=== PATIENT | female | born 1955 | race Caucasian/White ===

== ENCOUNTER → 2016-12-03 | Outpatient (CLI) | payer OTHER ==
[~2016-12-03] MED LIST: CYMB30CA PO; CYMB60CA PO
--- NOTE | 2016-12-07 14:05 | RSPPFT ---
DATE OF PROCEDURE: 12/03/16 COMMENTS: Spirometry shows FVC of 2.8 at 108% of predicted, FEV1 of 2.3 at 121%, FEV1/FVC ratio is normal. Flow is normal at FEF 25, FEF 50, FEF 75 and FEF 25-75. There is no response after bronchodilator treatment. Lung volumes show residual volume is increased. TLC is increased. Diffusion capacity is normal. Flow volume loop indicates a normal pattern. IMPRESSION: 1. Normal spirometry. 2. No response after bronchodilator treatment. 3. Lung volumes show hyperinflation. 4. Diffusion capacity is normal.
== END ==
LOC: HRSP 07:44
PROVIDERS: ATTEND Specialist
DX: J44.9 Chronic obstructive pulmonary disease, unspecified (principal)
CPT/HCPCS: 94060; 94726; 94729

== ENCOUNTER → 2017-02-10 | Outpatient (CLI) | payer OTHER ==
[~2017-02-10] VITALS: Ht 152.4 cm; Wt 65.8 kg
[~2017-02-10] MED LIST changes: +*RESP: ALBUTEROL 2.5 MG/3 ML NEB (PRN) PERIprocedural Use ONLY NEB ONE; +CALC600T64 PO; +CHLORHEXIDINE GLUCONATE 2 % 1 PACK (2 CLOTHS) TOPICAL PRN; -CYMB30CA PO; +DO NOT ADM ANY ANTICOAGULANT DRUGS PRN; +FISH100020 PO; +FLUMAZENIL 0.5 MG/5 ML VIAL IV PRN; +HYOSCYAMINE 0.125 MG TAB SL ONE; +INSULIN HUMAN REGULAR 1,000 UNITS/10 ML VIAL SQ PRN; +LACTATED RINGER'S 1000 ML IV PRN; +METOPROLOL TARTRATE 25 MG TAB PO PRN; +NALOXONE HCL 0.4 MG/ML AMP IV PRN; +ONDANSETRON HCL 4 MG/2 ML VIAL IV PUSH ONE; +POVIDONE IODINE 5% (ANTISEPSIS KIT) 4 APPLICATIONS EACH NARE PRN; +PROPOFOL 200 MG/20 ML AMP IV PUSH ONE; +RESP: ALBUTEROL 2.5 MG/3 ML NEB (SCH) INH ONE; +SODIUM CHLORID 0.9% 500 ML IV PRN
[2017-02-10 09:59] VITALS: BP 109/68; PULSE 61; RESP 16; TEMP 97.5; O2SAT 95
[2017-02-10 16:00] VITALS: BP 103/56; PULSE 76; RESP 20; TEMP 98.7; O2SAT 95
--- NOTE | 2017-02-11 08:08 | EKG ---
Date Performed: 02/10/2017 Time Performed: 09:42:38 PTAGE: 61 years EKG: Sinus rhythm BORDERLINE LEFT AXIS DEVIATION INCOMPLETE RIGHT BUNDLE BRANCH BLOCK BORDERLINE ECG NO PREVIOUS TRACING DOCTOR: Alex Holm Interpretating Date/Time 02/11/2017 08:04:45
--- NOTE | 2017-02-12 15:30 | MR ---
cc: BROOKE MENSAH M.D. DATE: 02/10/2017. TYPE OF PROCEDURE PERFORMED: Colonoscopy with biopsy. INDICATIONS FOR THE PROCEDURE: Screening colonoscopy apparent average risk. The patient has a recent CT scan which revealed the possibility of left-sided colitis, rule out colitis as well. Photographs were taken. Biopsies were taken. Premedications administered by anesthesiology. Monitoring, pulse oximetry and EKG and blood pressure monitor. DESCRIPTION OF THE PROCEDURE IN DETAIL: After informed consent was obtained and the procedure risks and benefits were explained including the risks of bleeding, sepsis, perforation, and risk of anesthesia, the patient was placed in the left lateral position. The video colonoscope was inserted to the rectum. The left colon was quite tortuous. Scattered diverticulosis was noted. One diminutive polyp was found and biopsied off and removed. The scope was maneuvered with some moderate difficulty along the left colon into the transverse colon and the right colon and cecum were entered. Mucosa throughout appeared to be grossly normal without any inflammatory changes. There was one diverticulum noted in the ascending colon. The scope was then gradually withdrawn. There was some residual liquefied secretions and/or stool noted. The scope did have a tendency to get clogged a few times and had to be unclogged during the procedure. Also the patient did have a tendency to retain some air as well. The scope was pulled back down to the distal sigmoid. Another diminutive polyp was found and biopsied off and removed. Advancement of the scope back to the transverse colon for decompression of air was difficult because of tortuosity but eventually the transverse colon was reentered and suctioned as best possible. In the rectum, the scope was retroflexed and was removed. I did not appreciate any significant hemorrhoids or masses. The patient tolerated this well. The patient did have some nausea postprocedure and was given Zofran. IMPRESSION: This examination revealed small polyps that were biopsied off as outlined above. Diverticulosis was noted and colonic tortuosity noted in the left colon as well. There was some residual liquefied stool suctioned as best possible. The patient did have a tendency to retain air as well and she was decompressed with suctioning as best possible. PLAN: The plan will be to follow the patient clinically and postop and then hopefully discharge and follow up as an outpatient. Will follow up biopsies taken today. Recommend repeat colonoscopy in 5 years if adenomatous polyps were encountered. Recommend high fiber diet and fiber supplements. This examination failed to reveal any active colitis or inflammatory changes. MD JARETT Reyes/REJI /1:32 PM /3:20 PM
== END ==
LOC: HSDC 09:01
PROVIDERS: ATTEND Internal Medicine Gastroenterology
DX: Z12.11 Encounter for screening for malignant neoplasm of colon (principal); K57.30 Diverticulosis of large intestine without perforation or abscess without bleeding; D12.4 Benign neoplasm of descending colon; D12.5 Benign neoplasm of sigmoid colon; I45.10 Unspecified right bundle-branch block
CPT/HCPCS: 00810; 45380; 88305; 93005; 94664; J2405; J7120; J7613

== ENCOUNTER → 2017-05-03 | Outpatient (CLI) | payer OTHER ==
[~2017-05-03] MED LIST changes: -*RESP: ALBUTEROL 2.5 MG/3 ML NEB (PRN) PERIprocedural Use ONLY NEB ONE; +ALBUAER3 INH; -CHLORHEXIDINE GLUCONATE 2 % 1 PACK (2 CLOTHS) TOPICAL PRN; -DO NOT ADM ANY ANTICOAGULANT DRUGS PRN; -FLUMAZENIL 0.5 MG/5 ML VIAL IV PRN; -HYOSCYAMINE 0.125 MG TAB SL ONE; +IBUP1TAB5 PO; -INSULIN HUMAN REGULAR 1,000 UNITS/10 ML VIAL SQ PRN; -LACTATED RINGER'S 1000 ML IV PRN; -METOPROLOL TARTRATE 25 MG TAB PO PRN; -NALOXONE HCL 0.4 MG/ML AMP IV PRN; -ONDANSETRON HCL 4 MG/2 ML VIAL IV PUSH ONE; -POVIDONE IODINE 5% (ANTISEPSIS KIT) 4 APPLICATIONS EACH NARE PRN; -PROPOFOL 200 MG/20 ML AMP IV PUSH ONE; -RESP: ALBUTEROL 2.5 MG/3 ML NEB (SCH) INH ONE; -SODIUM CHLORID 0.9% 500 ML IV PRN
== END ==
LOC: CPRE 12:18
PROVIDERS: ATTEND Neurological Surgery
DX: Z00.00 Encounter for general adult medical examination without abnormal findings (principal)

== ENCOUNTER 2017-05-06 05:56 | Observation (INO) | payer OTHER ==
--- NOTE | 2017-05-05 14:48 | MH ---
cc: SHILA ANGULO MD, ROHIT K. M.D. DATE OF ADMISSION: 05/06/2017 ADMITTING DIAGNOSIS Cervical stenosis. HISTORY OF PRESENT ILLNESS This is a 62-year-old female who presented to our office for evaluation of neck pain which she has had for 2 years, progressively getting worse. She has pain that radiates into the right upper extremity in the lateral aspect to the elbow and feels like she has pins and needles and stabbing pain in the elbow. She states the pain progresses down the arm and stops mostly at the wrist, but sometimes goes into the fingers and hand. She has noticed weakness in her right hand. She is left-handed. When she ambulates she feels off balance. She denies any urinary frequency or incontinence. She has had chronic low back pain and feels like it could go out on her. She has had physical therapy on her low back and pain management for her low back but has not had any physical therapy or pain management on her neck. PAST MEDICAL HISTORY 1. Rheumatoid arthritis. 2. Depression. 3. Hysterectomy in 2014. MEDICATIONS Current medications: 1. Cymbalta 60 mg daily. 2. Fish oil daily; this was placed on hold prior to surgical intervention. 3. Calcium daily. ALLERGIES SHE IS ALLERGIC TO CODEINE. FAMILY HISTORY Her father's health is unknown. Her mother is at 73-year-old, had COPD and heart failure. Her sister is alive at [id number], has COPD. Her other sister is alive at [id number], has diabetes. SOCIAL HISTORY She is . She has two children. She lives alone. She does not smoke and has not smoked in the past. She does not drink alcohol. REVIEW OF SYSTEMS CONSTITUTIONAL: She denies any fever or chills. EARS, NOSE, AND THROAT: No pharyngitis, exudates or bloody drainage from her nose. CARDIOVASCULAR: She denies any chest pain or palpitations. RESPIRATORY: No cough or shortness of breath. GENITOURINARY: No dysuria or hematuria. MUSCULOSKELETAL: Positive for neck pain. SKIN: No rashes or pruritus. NEUROLOGIC: No difficulty with speech or memory GASTROINTESTINAL: No nausea, vomiting, abdominal pain. PSYCHIATRIC: Positive for anxiety and depression symptoms. ENDOCRINE: No polyuria or polydipsia. HEMATOLOGIC: No bruising or bleeding tendencies. PHYSICAL EXAMINATION HEAD: Normocephalic, atraumatic. NECK: Supple. No carotid bruits heard on auscultation. LUNGS: Clear to auscultation bilaterally. HEART: Regular rate and rhythm. Normal S1, S2. ABDOMEN: Soft, nontender. Positive bowel sounds. SKIN: No cyanosis or erythema. MUSCULOSKELETAL: She has left triceps 4/5 strength, bilateral hand intrinsic 4/5 strength. Her other strength is 5/5 in the upper and lower extremities. She ambulates without any assistive device. NEUROLOGIC: She is awake, alert and oriented. Cranial nerves II-XII appear grossly intact. Her speech is fluent. Comprehension is good. Reflexes are slightly brisk in the lower extremities, 2+ in the upper extremities. There is no Ted or clonus response. DATA REVIEW We reviewed an MRI of the cervical spine from December 31, 2016 which reveals severe C5-C6 spinal stenosis with spinal cord compression and intrinsic spinal cord changes from a disc osteophyte complex along with degenerative disc disease. There is also C4-C5 degenerative disc disease and C6-C7 disc osteophyte complex with left-sided foraminal more than right, but no significant spinal stenosis. IMPRESSION A 61-year-old female with a chronic history of neck and low back pain with associated cervical myelopathy and weakness in the hand intrinsics with unsteadiness in her gait. She has severe C5-C6 spinal cord compression from a disc osteophyte complex and degenerative changes. She also has degenerative disc disease at C4-C5 and C6-C7. PLAN We have discussed the treatment options with the patient and we recommend an anterior C5-C6 microdiscectomy with fusion given the cervical myelopathy and spinal cord compression. She is at increased risk of worsening weakness and paralysis especially following any whiplash type injury. We have also discussed other options which include physical therapy to help prevent further deconditioning with spinal stabilization exercises. The procedure as well as the risk, benefit, alternative and recovery time were explained in great detail with the patient. We have discussed the risks involved with surgery include but are not limited to bleeding, infection, muscle weakness, voice hoarseness, difficulty swallowing, heart attack, stroke, blood clots, non-fusion, scar tissue formation, among others. The patient understands the procedure as well as the risks involved and she is requesting that we proceed and she was therefore scheduled accordingly. Dictated by: Angus Ba PA-C MD JAIRO Metcalf /1:41 PM /2:30 PM
[~2017-05-06] VITALS: Ht 152.4 cm; Wt 66.5 kg
[2017-05-06] VITALS (7 sets, daily range): BP systolic 113–133; BP diastolic 64–78; PULSE 69–75; RESP 16–24; TEMP 96.4–97.7; O2SAT 92–98
[~2017-05-06 05:56] MED LIST changes: -CYMB60CA PO
[2017-05-06] MEDS ORDERED: VANCOMYCIN 1,000 MG/NS 250 ML IV SCH ×2 (06:30)
[2017-05-06] MEDS ORDERED: METOPROLOL TARTRATE 25 MG TAB PO PRN (06:30)
[2017-05-06] MEDS ORDERED: INSULIN HUMAN REGULAR 1,000 UNITS/10 ML VIAL SQ PRN (06:30)
[2017-05-06] MEDS ORDERED: POVIDONE IODINE 5% (ANTISEPSIS KIT) 4 APPLICATIONS EACH NARE PRN (06:30)
[2017-05-06] MEDS ORDERED: LACTATED RINGER'S 1000 ML IV PRN (06:30)
[2017-05-06] MEDS ORDERED: CHLORHEXIDINE GLUCONATE 2 % 1 PACK (2 CLOTHS) TOPICAL PRN (06:30)
[2017-05-06] MEDS ORDERED: SODIUM CHLORID 0.9% 500 ML IV PRN (06:30)
[2017-05-06] MEDS ORDERED: SODIUM CHLOR 0.9% 1000 ML INJ 1,000 ML IV SCH (06:45)
[2017-05-06] MEDS ORDERED: VANCOMYCIN HCL 1000 MG VIAL ONE (06:53)
[2017-05-06] MEDS ORDERED: GELFOAM SIZE 100 ONE (06:54)
[2017-05-06] MEDS ORDERED: THROMBIN (TOPICAL) 5,000 UNIT VIAL ONE (06:54)
[2017-05-06] MEDS ORDERED: BUPIVACAINE/EPINEPHRINE 0.5% PF 10 ML VIAL ONE (06:54)
[2017-05-06] MEDS ORDERED: DEXAMETHASONE SOD PHOS 4 MG/ML VIAL ONE (09:53)
[2017-05-06] MEDS ORDERED: NS + KCL 20 MEQ INJ 1,000 ML IV SCH (11:26)
[2017-05-06] MEDS ORDERED: DO NOT ADM ANY ANTICOAGULANT DRUGS PRN (11:29)
[2017-05-06] MEDS ORDERED: ACETAMINOPHEN/HYDROcodone 325 MG/10 MG TAB PO PRN (11:30)
[2017-05-06] MEDS ORDERED: ACETAMINOPHEN 325 MG TAB PO PRN (11:30)
[2017-05-06] MEDS ORDERED: ZOLPIDEM TARTRATE 5 MG TAB PO PRN (11:30)
[2017-05-06] MEDS ORDERED: ALUMINUM/MAGNESIUM/SIMETH 30 ML CUP PO PRN (11:30)
[2017-05-06] MEDS ORDERED: RESP: ALBUTEROL 2.5 MG/3 ML NEB (PRN) NEB (11:30)
[2017-05-06] MEDS ORDERED: CYCLOBENZAPRINE HCL 10 MG TAB PO PRN (11:30)
[2017-05-06] MEDS ORDERED: cloNIDine HCL 0.1 MG TAB PO PRN (11:30)
[2017-05-06] MEDS ORDERED: SODIUM CHLORIDE 0.9% FLUSH 10 ML FLUSH IV FLUSH PRN (11:30)
[2017-05-06] MEDS ORDERED: ALBUTEROL SULFATE 90 MCG/ACT HFA 8 GM INHALER INH PRN (11:30)
[2017-05-06] MEDS ORDERED: PROMETHAZINE INJ 25 MG/ML VIAL IM PRN (11:30)
[2017-05-06] MEDS ORDERED: MENTHOL LOZENGE BUCCAL PRN (11:30)
[2017-05-06] MEDS ORDERED: MAGNESIUM HYDROXIDE SUSP 30 ML CUP PO PRN (11:30)
--- NOTE | 2017-05-06 11:34 | PD.OP ---
cc: Chay Hand MD R2 Operative Report Date of Surgery: May 06, 2017 Preoperative Diagnosis: Neck pain with myeloradiculopathy; C5-6 severe stenosis from a large disc osteophyte complex and spinal cord compression Postoperative Diagnosis: Same Procedure: Anterior cervical C5-6 interbody fusion; anterior C5-6 the plate placement; C5- 6 interbody cage placement; microsurgical technique Anesthesia: Gen. endotracheal by Shanice Chung Surgeon: Michael Maciel M.D. Case Manager(s): Johanna Cantu Operation and Findings: Following administration of general endotracheal anesthesia with the neck maintained in neutral position of [place] collar, the patient received a gram of vancomycin and Decadron 10 mg intravenously. Sequential compression devices were placed in supine position on a Tayo table and all pressure points adequately padded. The head secured in a donut and anterior cervical region then shaved and prepped with Chloraprep and sterilely draped with Ioban along with the usual sterile draping. A transverse skin incision on the left side of the neck was then made after infiltrating the skin with 0.5% Marcaine with epinephrine solution extending down through the platysma. At the anterior border of the sternocleidomastoid further dissection was undertaken developing a plane between the carotid sheath laterally and the trachea esophagus medially. The prevertebral fascia was exposed and dissected out. The medial attachments of the longus colli muscles were detached and a self-retaining retractor used for exposure. The C5-6 disc space was localized with a marking the disc space and using lateral fluoroscopy. Large anterior osteophytes were resected with a Leksell and also C4-5 autofusion was evident. Midland distraction screws 14 mm length were placed one in the C5 and one in the C6 body interbody distraction and exposure. There was significant disc degeneration with disc height collapse and anterior osteophytes noted at the C5- 6 level and the osteophytes were resected with a Leksell and annulus incised with a 15 blade and further dissection undertaken using microtechnique with microscope magnification. Diskectomy was undertaken with pituitaries and the endplates were also decorticated with curettes and drill bit. And more posteriorly there was disk osteophyte complex compressing the thecal sac along with a significant uncovertebral joint hypertrophy with foraminal stenosis which was decompressed along with removal of the posterior longitudinal ligaments at both levels. The foramen was decompressed bilaterally using a Kerrison's and palpation with a nerve hook, the exiting nerve roots were felt to be free. The area was then copiously irrigated. I then placed a Peek cage packed with local autograft bone at the C5-6 interspace under fluoroscopy guidance. Midland distraction pins were removed and the holes plugged with Gelfoam for hemostasis. In order to facilitate the fusion and provide stabilization, a Precision spine cervical plate was then placed with two 14 mm variable angle screws in the C5 body and two 14 mm fixed angle screws in the C6 body. The plate screw locking mechanism was then engaged. AP and lateral fluoroscopy confirmed good placement of the construct and the retractor was then removed. Muscular bleeding points were cauterized with bipolar cautery and Gelfoam was then also used for hemostasis which was removed. The platysma was then approximated using 3-0 Vicryl interrupted stitches and 3-0 Vicryl subcuticular stitch also placed in an interrupted fashion, and final skin closure was with Mastisol and Steri-Strips. Sterile dressing was then applied. The patient was then extubated and taken to the recovery room. There are no intraoperative complications and all sponge and needle counts were correct at the end of procedure. Estimated blood loss was about 50 cc. The patient did undergo intraoperative neurologic monitoring which remained stable throughout the surgery. Michael Maciel MD May 06, 2017 11:34
[2017-05-06] MEDS ORDERED: *morphine SULFATE 8 MG/ML PERIprocedure ONLY ONE (11:50)
[2017-05-06] MEDS ORDERED: ONDANSETRON HCL 4 MG/2 ML VIAL IV PUSH ONE (12:00)
[2017-05-06] MEDS ORDERED: PROPOFOL 200 MG/20 ML AMP IV ONE (12:00)
[2017-05-06] MEDS ORDERED: LIDOCAINE HCL 1% PF 5 ML AMPULE OTHER ONE (12:00)
[2017-05-06] MEDS ORDERED: NORMOSOL R INJ 1,000 ML IV ONE (12:00)
[2017-05-06] MEDS ORDERED: ROCURONIUM INJ 50 MG/5 ML SYRINGE IV PUSH ONE (12:00)
[2017-05-06] MEDS ORDERED: DEXAMETHASONE SOD PHOS 4 MG/ML VIAL IV ONE (12:00)
[2017-05-06] MEDS ORDERED: ePHEDrine/NS 25 MG/5 ML SYR IV ONE (12:00)
[2017-05-06] MEDS ORDERED: PHENYLEPH/NS 1000 MCG/10 ML SYR IV ONE (12:00)
--- NOTE | 2017-05-06 14:30 | RADRPT ---
EXAM DATE/TIME: 05/06/2017 08:58 [facility] COMPARISON: No previous studies available for comparison. INDICATIONS : Fusion C5,C6 with screw and plate placement. MEDICAL HISTORY : None. SURGICAL HISTORY : Hysterectomy. ENCOUNTER: Subsequent ACUITY: 1 day PAIN SCORE: Non-responsive LOCATION: Cervical Spine FINDINGS: Patient is status post anterior cervical fusion at C5-C6. There is good position and alignment of the cervical spine and fusion. The hardware is grossly intact. CONCLUSION: Good position and alignment on this postoperative study. Hubert Matias MD on May 06, 2017 at 13:43 Board Certified Radiologist. This report was verified electronically.
[2017-05-06] MEDS: MORPHINE SULFATE 4 MG/ML INJ IV PUSH PRN ×2 (16:19→23:27)
[2017-05-06] MEDS: DEXAMETHASONE SOD PHOS 4 MG/ML VIAL IV PUSH SCH ×2 (17:56→23:22)
[2017-05-06] MEDS: ONDANSETRON HCL 4 MG/2 ML VIAL IV PUSH PRN ×2 (17:56→23:25)
[2017-05-06] MEDS: SODIUM CHLORIDE 0.9% FLUSH 10 ML FLUSH IV FLUSH SCH (21:27)
[2017-05-06] MEDS: DOCUSATE SODIUM 100 MG CAP PO SCH (21:28)
[2017-05-07 03:41] VITALS: BP 115/66; PULSE 76; RESP 18; TEMP 97.1; O2SAT 95
[2017-05-07] MEDS: ACETAMINOPHEN/HYDROcodone 325 MG/10 MG TAB PO PRN ×2 (04:49→09:39)
[2017-05-07 08:00] VITALS: BP 136/70; PULSE 70; RESP 18; TEMP 96.9; O2SAT 98
[2017-05-07] MEDS: DOCUSATE SODIUM 100 MG CAP PO SCH (08:47)
[2017-05-07] MEDS: SODIUM CHLORIDE 0.9% FLUSH 10 ML FLUSH IV FLUSH SCH (08:50)
[2017-05-07] MEDS ORDERED: PANTOPRAZOLE SOD 40 MG DELAYED RELEASE TAB PO SCH (09:00)
[2017-05-07] MEDS ORDERED: CALCIUM/VITAMIN D 250 MG/125 U TAB PO SCH (09:00)
--- NOTE | 2017-05-07 09:19 | HHI.NSPN ---
History Chief Complaint: Mild incisional neck discomfort. Interval History Pt s/p anterior cervical C5-6 interbody fusion; anterior C5-6 the plate placement; C5-6 interbody cage placement; microsurgical technique on 05/06/17. She states she is doing very well with resolution of RUE pain. No paresthesias in UEs. No difficulty swallowing. Review of Systems General: Negative for: fever, chills, insomnia Respiratory: Negative for: shortness of breath Cardiovascular: Negative for: chest pain Gastrointestinal: Negative for: nausea, vomitting, diarrhea, constipation Exam Results Vital Signs Date Time Temp Pulse Resp B/P (MAP) Pulse Ox O2 Delivery O2 Flow Rate FiO2 05/07/17 03:41 97.1 76 18 115/66 (82) 95 05/06/17 20:00 Room Air 05/06/17 19:42 21 05/06/17 12:22 3.00 Intake and Output 05/07/17 05/07/17 05/08/17 08:00 16:00 00:00 Intake Total 580 ml Balance 580 ml Physical Examination Resp: CTA bilaterally Heart: NSR no murmurs Abd: Soft positive bs Skin: Incision clean and dry. New bandage placed by RN this am. Muscle: Moves all 4 extremities with good strength. Neuro: Pt awake and alert. Follows commands well. Speech clear and appropriate. Sensation intact in extremities. Lab, Micro, Other Results Last Impressions Cervical Spine X-Ray 05/06/17 0000 Signed Impressions: Service Date/Time: May 08:58 - CONCLUSION: Good position and alignment on this postoperative study. Hubert Matias MD Medical Decision Making Impression and Plan A: 62 y/o FM s/p anterior cervical C5-6 interbody fusion; anterior C5-6 the plate placement; C5-6 interbody cage placement on 05/06/17. P: D/C home. Discussed restrictions. Angus Ba May 07, 2017 9:18 am
[2017-05-07 09:55] VITALS: O2SAT 97
[2017-05-07] MEDS ORDERED: PNEUMOCOCCAL POLYVALENT INJ 25 MCG/0.5 ML SYR IM ONE (10:00)
== END 2017-05-07 11:18 | disposition home or self-care (01) ==
LOC: HSDC 05:56 → HSDI 11:30 → INTOOBSV 11:30 → N06B 12:22
PROVIDERS: ADMIT Neurological Surgery; ATTEND Neurological Surgery
DX: M48.02 Spinal stenosis, cervical region (principal); M50.30 Other cervical disc degeneration, unspecified cervical region; M47.12 Other spondylosis with myelopathy, cervical region; G95.20 Unspecified cord compression; M25.78 Osteophyte, vertebrae; M06.9 Rheumatoid arthritis, unspecified
CPT/HCPCS: 00600; 20936; 22551; 22845; 22853; 72040; 76000; 94150; 96365; 96374; 96375; 96376; C1713; G0378; J0690; J1100; J2270; J2370; J2405; J3010; J3370; J3480; J7050; J7120

== ENCOUNTER → 2017-06-15 | Outpatient (CLI) | payer OTHER ==
[~2017-06-15] MED LIST changes: -IBUP1TAB5 PO
--- NOTE | 2017-06-15 12:02 | RADRPT ---
EXAM DATE/TIME: 06/15/2017 11:36 [facility] COMPARISON: [facility] ([facility]), May 06, 2017, 8:58. INDICATIONS : Post [facility] MEDICAL HISTORY : None. SURGICAL HISTORY : None. ENCOUNTER: Subsequent ACUITY: 2 months PAIN SCORE: 0/10 LOCATION: C-spine FINDINGS: The examination demonstrates anterior cervical fusion across the C5-C6 level. Fusion hardware and spa cing material are in excellent position. Note is made of a severely degenerated disc at C6/7 level as well. There is mild anterolisthesis of C3 on C4. CONCLUSION: 1. Anterior cervical fusion across the C5/C6 level. Hardware appears well-positioned. Orville Millard MD on June 15, 2017 at 12:00 Board Certified Radiologist. This report was verified electronically.
== END ==
LOC: HRAD 11:15
PROVIDERS: ATTEND Neurological Surgery
DX: Z98.1 Arthrodesis status (principal)
CPT/HCPCS: 72040